=== PATIENT | female | born 1955 | race Asian ===

== ENCOUNTER → 2024-05-31 | Outpatient (CLI) | payer MEDICARE, MEDICAID, SELFPAY ==
--- NOTE | 2024-05-31 13:00 | XR_ITS ---
Examination: MRI abdomen with intravenous contrast. MRI abdomen without intravenous contrast. Date and time of exam: May 31, 2024 1318 hours INDICATIONS: CT chest March 07, 2024 abnormal low density areas throughout the liver Technique: Multiple axial, sagittal and coronal sections of the abdomen obtained. Transverse images, TR 6020, TE 107. T1 weighted transverse images, TR 582, TE 9.5. T2-weighted sagittal images, TR 4000, TE 105. T2-weighted sagittal images, TR 4000, TE 5. Coronal images, TR 4210, TE 107. Axial and coronal images are obtained post 19 cc intravenous injection, gadolinium. Findings: Precontrast images demonstrate 3 mm anterior right lobe liver cyst Postcontrast images demonstrate no abnormal enhancing lesions Cholelithiasis, no gallbladder wall thickening, no common hepatic or common bile duct stones Spleen is not enlarged No pancreatic or adrenal mass Cystic medial right kidney measuring 3.6 cm Aorta normal size No ascites IMPRESSION: No liver lesions are confirmed
== END | disposition home or self-care (01) ==
PROVIDERS: PCP Registered Nurse; Referring Provider Registered Nurse; Visit Provider Registered Nurse
DX: R93.2 Abnormal findings on diagnostic imaging of liver and biliary tract (principal)
CPT/HCPCS: 74183; A9579

== ENCOUNTER → 2025-07-09 | Outpatient (CLI) | payer MEDICARE, MEDICAID, SELFPAY ==
[2025-07-09 11:48] LABS: Cardiac Risk Estimate 2.5 RATIO (3.7-5.6); Cholesterol 179 mg/dL (132-200); HDL Cholesterol 72 mg/dL (40-60); LDL Cholesterol,Calculated 80 mg/dL (0-130); Triglycerides 134 mg/dL (30-150)
[2025-07-09 11:52] LABS: Glucose Estimated Average 120 mg/dL (80-131); Hemoglobin A1C 5.8 % Hgb (4.8-6.0)
== END | disposition home or self-care (01) ==
LOC: COPL 10:55
PROVIDERS: PCP Internal Medicine; Referring Provider Internal Medicine; Visit Provider Internal Medicine
DX: E78.5 Hyperlipidemia, unspecified (principal); R73.03 Prediabetes
CPT/HCPCS: 36415; 80061; 83036